=== PATIENT | female | born 1975 | race Caucasian/White ===

== ENCOUNTER 2021-04-15 17:19 | Inpatient (IN) | payer MEDICARE, MEDICAID ==
[~2021-04-15] VITALS: Ht 127 cm; Wt 68.0 kg
[~2021-04-15 17:19] MED LIST: B12INJ IM; CALCIPOTRIENE60 G1; CLARITIN10 MG PO; LOPRESSOR25 PO; RESTASIS1 EACH PO; SYNTHROID125 MC1 PO; TRI-SPRINTEC1 EACH PO; VITAMIN D1000 UNI1 PO; ZOLOFT25 MG PO
[2021-04-15 17:26] VITALS: BP 116/62
[2021-04-15] MEDS ORDERED: METROGEL-VAGINA70 GM VAG (17:26)
[2021-04-15] MEDS ORDERED: CALCIUM500 MG PO (17:26)
[2021-04-15] MEDS ORDERED: VITAMIN B-12100 MC1 IM (17:27)
[2021-04-15] MEDS ORDERED: [UNRECOGNIZED DRUG - OTHER] (17:27)
[2021-04-15] MEDS ORDERED: MILK OF MA400 MG/5 M PO (17:28)
[2021-04-15] MEDS ORDERED: HUMIRA10 MG/0.1 (17:28)
[2021-04-15] MEDS ORDERED: MAPAP500 MG PO (17:28)
[2021-04-15] MEDS ORDERED: DEEP SEA NASAL44 M1 NASAL (17:29)
[2021-04-15] MEDS ORDERED: BENZONATATE200 MG PO (17:29)
[2021-04-15] MEDS ORDERED: COUGH DM30 MG/5 ML PO (17:29)
[2021-04-15] MEDS ORDERED: LOPERAMIDE2 MG PO (17:30)
[2021-04-15] MEDS ORDERED: ORADENT 0.1% DEN5 G1 NASAL (17:30)
[2021-04-15 17:59] LABS: URINE BILIRUBIN NEGATIVE (Negative); URINE BLOOD NEGATIVE (Negative); URINE CLARITY CLEAR; URINE COLOR YELLOW; URINE GLUCOSE-RANDOM NEGATIVE (Negative); URINE KETONES NEGATIVE (Negative); URINE LEUKOCYTES NEGATIVE (Negative); URINE NITRITE NEGATIVE (Negative); URINE PROTEIN NEGATIVE (Negative); URINE SPECIFIC GRAVITY 1.015 (1.005-1.030); URINE UROBILINOGEN 0.2 E.U./dl (0.2-1.0)
[2021-04-15 18:24] LABS: ABSOLUTE EOSINOPHILS 0.1 thou/uL (0.0-0.7); ABSOLUTE LYMPHOCYTES 1.4 thou/uL (0.8-5.3); ABSOLUTE MONOCYTES 0.4 thou/uL (0.0-1.2); ABSOLUTE NEUTROPHILS 1.6 thou/uL (1.6-8.1); BASOPHILS 0.3 %; EOSINOPHILS 3.1 %; HEMOGLOBIN 12.1 gm/dL (12.0-15.0); LYMPHOCYTES 39.2 %; MCHC 33.6 g/dL (28.0-37.0); MCV 95.2 fL (80.0-100.0); MONOCYTES 11.4 %; MPV 7.1 fl. (7.2-11.1); NUCLEATED RBCS 0 /100WBC; PLATELET COUNT* 164 thou/uL (150-400); RBC 3.78 mil/uL (4.20-5.00); RDW-CV 13.1 % (10.5-14.5); WBC 3.5 thou/uL (4.0-11.0)
[2021-04-15 18:33] LABS: CALCIUM 8.3 mg/dL (8.5-10.1); CREATININE 1.2 mg/dL (0.6-1.3)
[2021-04-15 18:37] LABS: TOTAL BILIRUBIN 0.2 mg/dL (<0.1-1.0); TOTAL PROTEIN 6.7 g/dL (6.4-8.2)
[2021-04-16] VITALS (7 sets, daily range): BP systolic 114–124; BP diastolic 54–89
--- NOTE | 2021-04-16 07:48 | NUR ---
OFELIA,DIE EQUIPMENT OPERATOR [phone]. CALLED FOR AN UPDATE
--- NOTE | 2021-04-16 08:34 | EKG ---
[place] [address] ELECTROCARDIOGRAM REPORT Name: NEERAJ ALFONSO Room: [address]R.#: [id number] Admission: 04/15/21 Attend Phys: Pamela Smart, Discharge: Date of : 75 Date of Service: 04/15/21 1740 Report #: [id number] THIS REPORT FOR: //name// [facility] ED Test Date: 2021-04-15 Test Time: 17:40:25 Pat Name: NEERAJ ALFONSO Department: Room: [facility] Gender: F Sanitary Plumber: TATYANA : 1975 Requested By: Alejandro Alamo Order Number: [id number] MD: Phong Sin Measurements Intervals [place] Rate: 61 P: 31 SD: 147 QRS: 69 QRSD: 97 T: 44 QT: 426 QTc: 429 Interpretive Statements Sinus rhythm No previous ECG available for comparison Electronically Signed On 04-16-2021 8:34:16 CDT by Phong Sin [email or web address] <ELECTRONICALLY SIGNED> By: hPong Sin MD, [facility] 04/16/21 0834 1740 1740 Phong Sin MD, [facility] /EPI
[2021-04-16 11:56] LABS: ALBUMIN 3.4 g/dL (3.4-5.0); CALCIUM 8.7 mg/dL (8.5-10.1); CREATININE 1.3 mg/dL (0.6-1.3); POTASSIUM 3.5 mmol/L (3.5-5.1); TOTAL BILIRUBIN 0.3 mg/dL (<0.1-1.0); TOTAL PROTEIN 7.7 g/dL (6.4-8.2)
--- NOTE | 2021-04-16 13:48 | 2DMMODE ---
[place] [address] 2 D/M-MODE ECHOCARDIOGRAM Name: NEERAJ ALFONSO Room: [address] IN [place]#: [id number] Admission: 04/16/21 Attend Phys: Pamela Smart, Discharge: Date of : 75 Date of Service: 04/16/21 1347 Report #: [id number] THIS REPORT FOR: cc: Comfort Garcia MD, Pamela MD Blick,Phong Cordero MD [facility] ~ APPROVED REPORT Study performed: 04/16/2021 11:29:54 EXAM: Comprehensive 2D, Doppler, and color-flow Echocardiogram Patient Location: In-Patient Room #: ER Status: routine BSA: 1.45 HR: 61 bpm BP: 118/70 mmHg Rhythm: NSR Other Information Study Quality: Good Indications CVA/TIA Echo Enhancing Agent Indication: Rule out Shunt Agent(s) / Amount(s) Used: Agitated Saline 10 cc 2D Dimensions IVSd: 7.77 (7-11mm) LVOT Diam: 19.55 (18-24mm) LVDd: 45.95 mm PWd: 6.37 (7-11mm) Ascending Ao: 29.65 (22-36mm) LVDs: 29.86 (25-40mm) Aortic Root: 26.62 mm Volumes Left Atrial Volume (Systole) LA ESV Index: 20.80 mL/m2 Aortic Valve AoV Peak Denny.: 1.52 m/s AO Peak Gr.: 9.26 mmHg LVOT Max P.24 mmHg AO Mean Gr.: 5.37 mmHg LVOT Mean P.83 [place] [address] 2 D/M-MODE ECHOCARDIOGRAM Name: NEERAJ ALFONSO Room: [address] IN [facility]#: [id number] Admission: 04/16/21 Attend Phys: Pamela Smart, Discharge: Date of : 75 Date of Service: 04/16/21 1347 Report #: [id number] LVOT Max V: 1.25 m/s AO V2 VTI: 34.60 cm LVOT Mean V: 0.76 m/s ALEKS (VTI): 2.26 cm2 LVOT V1 VTI: 26.04 cm AI [place]: 2.53 m/s2 AI PHT: 449.37 ms Mitral Valve E/A Ratio: 1.53 MV Decel. Time: 198.91 ms MV E Max Denny.: 1.08 m/s MV PHT: 57.68 ms MVA (PHT): 3.81 cm2 TDI E/Lateral E': 9.82 E/Medial E': 12.00 Medial E' Denny.: 0.09 m/s Lateral E' Denny.: 0.11 m/s Pulmonary Valve PV Peak Denny.: 1.31 m/s PV Peak Gr.: 6.84 mmHg Left Ventricle The left ventricle is normal size. There is normal LV segmental wall motion. There is normal left ventricular wall thickness. Left ventricular systolic function is normal. The left ventricular ejection fraction is within the normal range. LVEF is 55-60%. The left ventricular diastolic function is normal. Right Ventricle The right ventricle is normal size. The right ventricular systolic function is normal. Atria The left atrium size is normal. The interatrial septum is intact with no evidence for an atrial septal defect. The right atrium size is normal. Aortic Valve The aortic valve is normal in structure. Moderate aortic regurgitation. There is no aortic valvular stenosis. Mitral Valve The mitral valve is normal in structure. Trace mitral regurgitation. No evidence of mitral valve stenosis[place] [address] 2 D/M-MODE ECHOCARDIOGRAM Name: NEERAJ ALFONSO RAMÓN Room: [address] IN [facility]#: [id number] Admission: 04/16/21 Attend Phys: Pamela Smart, Discharge: Date of : 75 Date of Service: 04/16/21 1347 Report #: [id number] The tricuspid valve is normal in structure. Unable to assess PA pressure. Trace tricuspid regurgitation. Pulmonic Valve The pulmonary valve is normal in structure. There is no pulmonic valvular regurgitation. Great Vessels The aortic root is normal in size. IVC is normal in size and collapses >50% with inspiration. Pericardium There is no pericardial effusion. <Conclusion> LVEF is 55-60%. Moderate aortic regurgitation. The interatrial septum is intact with no evidence for an atrial septal defect. <ELECTRONICALLY SIGNED> By: Phong Sin MD, FACC 04/16/21 1347 46 46 Phong Sin MD, FACC /INF
--- NOTE | 2021-04-16 14:22 | CON ---
[address] [address] CONSULTATION Name: NEERAJ ALFONSO RAMÓN Room: [address] IN .R.#: [id number] Admission: 04/16/21 Attend Phys: Pamela Smart MD Discharge: Date of : 75 Report #: [id number] THIS REPORT FOR: cc: Comfort Garcia MD, Pamela MD [place], Roxane S. DO ~ DATE OF CONSULTATION: 04/16/2021 NEUROLOGY CONSULT HISTORY OF PRESENT ILLNESS: The patient was seen while she was still in the Emergency Room. I asked the patient why she came to the hospital and she told me that she had had a stroke. When I asked her what her symptoms were, she was unable to elaborate on that. She was able to tell me that she lives in a skilled nursing. No further information about this event could be obtained from the patient. The chart was examined. In the chart, it states that the patient had a witnessed episode of left facial droop and left upper extremity weakness, lasting 4-5 minutes. When this occurred, EMS was called. The patient has now returned to her baseline. She has no prior history of stroke. PAST MEDICAL HISTORY: Down syndrome, hypothyroidism, sleep apnea, celiac disease, psoriasis vulgaris. PAST SURGICAL HISTORY: Unknown. MEDICATIONS: Levothyroxine 125 mcg daily, loratadine 10 mg daily, sertraline 25 mg daily, Tri-Sprintec daily, vitamin D 5000 units daily, calcium 500 mg, B12 100 mcg daily, Humira as directed, magnesium 30 mL at bedtime, Tylenol 500 mg as directed. ALLERGIES: MARY INHIBITORS, GLUTEN AND LISINOPRIL. PHYSICAL EXAMINATION: VITAL SIGNS: Temperature 36.6, pulse rate 70, respiratory rate 14, blood pressure 118/70, bedside pulse oximetry 100% on 2 liters. NEUROLOGIC: The patient has the typical Down syndrome facies. However, extraocular movements intact. Facial expressions are symmetrical bilaterally. Tongue and palate midline. Shoulder shrug symmetrical bilaterally. Motor exam demonstrates the patient is able to raise her arms above her head and lift her legs individually off the bed. Reflexes are trace throughout. Plantar responses are flexor. There is no evidence of dysmetria in the upper extremities. Gait was not tested. LABORATORY WORK: Hematology: White blood cell count 3.5, hemoglobin 12.1, hematocrit 36.0, MCV 95.2, platelet count 164,000[place] [address] CONSULTATION Name: NEERAJ ALFONSO Room: [address] IN [facility]#: [id number] Admission: 04/16/21 Attend Phys: Pamela Smart MD Discharge: Date of : 75 Report #: [id number] Chemistry: Sodium 138, potassium 4, chloride 100, carbon dioxide 33, BUN 21, creatinine 1.2, GFR 48, glucose 98, calcium 8.3, total bilirubin 0.2, AST 21, ALT 24, alkaline phosphatase 62. Troponin 18, total protein 6.7, albumin 3.0. COVID negative. IMPRESSION AND PLAN: This patient has had a brief episode of left facial droop and left upper extremity weakness. A CT scan of the head has been ordered. I will also order a carotid ultrasound and an echocardiogram and hypercoagulable labs. The patient is now on aspirin 81 mg daily. Therapies have also been ordered. I thank you for your kind referral of this patient and will continue to follow her with you. <ELECTRONICALLY SIGNED> By: Ashley Robles DO 04/16/21 1422 0906 [id number] Robles DO /nt
--- NOTE | 2021-04-16 14:41 | NUR ---
CM COMPLETED ASSESSMENT WITH PT'S BROTHER / LEGAL GUARDIAN SHERI REEDR. PT LIVES IN [facility], [facility]. SUPERVISOR LATHING IS OFELIA. PT USES O2 AT [facility] AT 2L. PT HAS NO HX WITH HH OR SNF. PT IS INDEPENDENT WITH ADLS AND WORKS AT "[employer]." THE PLAN IS FOR PT TO RTRN TO [facility] [place]. POC IS FOR STROKE WORKUP. PT REFUSING CT SCAN.
[2021-04-16] MEDS ORDERED: AMMONIUM LACTA385 GM TOP (23:15)
[2021-04-16] MEDS ORDERED: DELSYM COU30 MG/5 ML PO (23:19)
[2021-04-17 01:38] LABS: CHOLESTEROL 183 mg/dL (<200); HDL CHOLESTEROL 56 mg/dL (>40); LDL CHOLESTEROL 99 mg/dL (<100); TC:HDL 3.3 Ratio (Not establshd); TRIGLYCERIDE 143 mg/dL (<150); VLDL 29 mg/dL (<40)
[2021-04-17 01:42] LABS: SERUM ASSESSMENT Clear
[2021-04-17 02:42] VITALS: BP 100/52
[2021-04-17 03:55] VITALS: BP 116/52
[2021-04-17 07:08] LABS: GLYCOHEMOGLOBIN (HGB A1C) 5.4 % (4.8-5.6)
[2021-04-17 07:30] VITALS: BP 95/43
[2021-04-17] MEDS ORDERED: ADULT LOW DOSE81 MG PO (08:02)
[2021-04-17] MEDS ORDERED: LIPITOR40 MG PO (08:06)
[2021-04-17 08:17] VITALS: BP 95/43
--- NOTE | 2021-04-17 14:34 | NUR ---
PLEASE NOTE PT IS PRESENTLY BEING DISCHARGED FROM THE HOSPITAL. UNABLE TO COMPLETE P.T. EVAL AND TREAT DUE TO PT BEING DISCHARGED.
[2021-04-17] MEDS ORDERED: ZOLOFT 50 MG TA50 MG PO (16:10)
[2021-04-17] MEDS ORDERED: SUPER CALCIUM600 MG PO (16:13)
[2021-04-17] MEDS ORDERED: TACLONEX OINTME60 GM (16:18)
[2021-04-17] MEDS ORDERED: LEVOXYL150 MCG PO ×2 (16:23→16:24)
[2021-04-17] MEDS ORDERED: HYDROGEN PERO3840 ML (16:28)
[2021-04-17] MEDS ORDERED: METRONIDAZOLE70 GM (16:30)
--- NOTE | 2021-04-17 17:00 | NUR ---
CHART COPIED. MEDS CALLED INTO PHARMACY. IV REMOVED. HEART MONITOR REMOVED. PT BELONGINGS GATHERED. PT LEFT VIA WHEELCHAIR WITH NURSING STAFF. FALL RISK PRECAUTIONS IN PLACE. HOURLY ROUNDING COMPLETED.
== END 2021-04-17 17:38 | disposition home or self-care (01) | DRG 69 ==
LOC: M.ERS 17:19 → M.TBA-ER 22:03 → M.2W 04-16 21:12
PROVIDERS: Emergency Medicine; Internal Medicine; Psychiatry & Neurology Neurology; ADMIT Internal Medicine; ATTEND Internal Medicine
DX: G45.9 Transient cerebral ischemic attack, unspecified (principal); E03.9 Hypothyroidism, unspecified; R29.810 Facial weakness; I34.0 Nonrheumatic mitral (valve) insufficiency; Z20.822 Contact with and (suspected) exposure to COVID-19; Z88.8 Allergy status to other drugs, medicaments and biological substances; Z79.82 Long term (current) use of aspirin; Z79.899 Other long term (current) drug therapy; Q90.9 Down syndrome, unspecified